=== PATIENT | male | born 1945 | race Caucasian/White ===

== ENCOUNTER → 2020-04-11 | Outpatient (CLI) | payer MEDICARE, SELFPAY | END | disposition home or self-care (01) | PROVIDERS: PCP Family Medicine; Referring Provider Dermatology; Visit Provider Dermatology | DX: L72.0 Epidermal cyst (principal); G89.3 Neoplasm related pain (acute) (chronic) | CPT/HCPCS: 87070; 87075; 87076; 87205 ==

== ENCOUNTER 2020-08-01 23:11 | Emergency (ER) | payer MEDICARE, SELFPAY ==
[2020-08-01 23:12] VITALS: BP 121/72; PULSE 70; RESP 15; TEMP 36.9; O2SAT 97; BMI 27.1
--- NOTE | 2020-08-01 23:29 | ED.VIS.GEN ---
History of Present Illness Chief Complaint: GI Bleed Informant: Patient Onset: Today Context: Sudden Onset Timing: Continuous Current Severity: Mild Maximum Severity: Moderate Narrative: The patient is a 74-year-old male that presents to the emergency department with rather sudden onset bright red blood per rectum. Patient states that a few days ago, he had some mild diarrhea. He states it seemed like it resolved. Yesterday he was moving his bowels and seem to be constipated. He states that the end of his bowel movement, he noticed some red blood on the toilet tissue. States today had to move his bowels again, and when he finished there was bright red blood leaking from his rectum. He states he is never had any like this before. He denies any weakness or lightheadedness. He is not on anticoagulants. He is otherwise been in his normal state of health. Prior similar symptoms: No Recent Illness/Hospitalization: No Past Medical History - Allergies and Home Meds Allergies/Adverse Reactions: Allergies No Known Allergies Allergy (Verified 08/01/20 23:12) Primary Care Physician: Israel Vu DO [Primary Care Provider] - Prior records reviewed: Yes Past Medical History: None Surgical History: no surgical history Smoking Status: Never smoker Review of Systems General: Denies: Chills, Fever, Sweats Eyes: Denies: Visual changes - bilaterally, Diplopia ENT: Denies: Rhinorrhea, Sore throat Cardiovascular: Denies: Chest pain, Palpitations Respiratory: Denies: Dyspnea, Cough, Dyspnea on exertion Gastrointestinal: Reports: Hematochezia. Denies: Abdominal pain, Nausea, Vomiting, Diarrhea, Melena Genitourinary: Denies: Dysuria, Hematuria, Frequency Musculoskeletal: Denies: Back pain, Extremity Pain Skin: Denies: Rash, Wounds Neurological: Denies: Headache, Weakness, Numbness Physical Exam Vital Signs/Narrative: Vital Signs Temp Pulse Resp BP Pulse Ox 08/01/20 23:12 98.4 F 70 15 121/72 H 97 Inital Vital Signs reviewed: Yes General: Well nourished, Well developed, No Acute Distress Head: Normocephalic, Atraumatic Eyes: Perrl, EOMI ENT: Moist mucous membranes, No rhinorrhea Neck: Supple, Nontender Cardiovascular: Regular rate, Regular rhythm, No murmurs Respiratory: No distress, CTA bilaterally, Chest nontender Abdomen: Soft, Nontender, Nondistended, Normal bowel sounds Rectal: - - Rectal exam demonstrates a hemorrhoid at the 9 o'clock position with stigmata of recent bleeding. With pressure, large clot was evacuated. There was some recurrent bleeding. It is nonpulsatile. Back: Nontender, Normal Inspection Extremities: Nontender, No edema Skin: Normal color, No rash Neurological: Alert, Oriented x3, Cranial nerves II-XII grossly intact, Normal Strength, Normal Sensation Psychological: Normal affect, Normal Mood Diagnostic/Tx/Re-eval - Medical Decision Making Rectal exam was done. Patient has hemorrhoid at the 9 o'clock position with stigmata of recent bleeding. With some compression, clot was expressed and there was mild recurrent bleeding. The area was packed with 4 x 4's and the patient was observed. Within 45 minutes, the area was reexplored. There was no further bleeding. I placed a piece of Surgifoam with 4 x 4's to achieve hemostasis. There is no thrombosis. He has no significant pain. His labs are unremarkable. At this point, I will continue him on stool softeners and have him follow-up with surgery for reevaluation. He is comfortable with this plan of care. Impression 1. External hemorrhoid with bleeding ED Disposition - Plan for ED Patient: Instructions: ED Hemorrhoids Prescriptions: Docusate Sodium [Colace] 100 mg PO DAILY #20 cap Prescription Printed Referrals: Espinoza Winn MD [STAFF PHYSICIAN] - As soon as possible
[2020-08-01 23:45] LABS: Absolute Lymphocyte Count 1.49 X10^3/uL (0.83-4.51); Absolute Neutrophil Count 2.5 X10^3/uL (2.0-7.7); Basophil# 0.05 X10^3/uL; Basophil% 1.1 % (0-1); Eosinophils% 4.3 % (0-5); Hematocrit 38.6 % (40-54); Hemoglobin 12.9 g/dL (13.0-16.5); Lymphocyte # 1.49 X10^3/ul (4.0); Mean Corp Hgb Conc 33.4 g/dL (32-36); Mean Corpuscular Hgb 31.5 pg (27.0-32.0); Mean Corpuscular Volume 94.4 fL (80-94); Mean Platelet Vol. 9.7 fl (6.2-12.0); Monocyte# 0.42 X10^3/uL; NRBC Flagged by Analyzer 0 % (0-5); Neutrophil # 2.46 X10^3/uL (2.7-7.7); Neutrophil % 52.7 % (47-70); Platelet Count 208 K/mm3 (150-450); RBC Distribution Width SD 44.9 fl (35.1-43.9); Red Blood Count 4.09 M/mm3 (4.6-6.2); White Blood Count 4.7 K/mm3 (4.4-11.0)
[2020-08-01 23:58] LABS: Anion Gap 3 (5-15); BUN 24 mg/dL (7-18); Calcium,Total 8.2 mg/dL (8.5-10.1); Chloride 111 mmol/L (98-107); Creatinine, Serum 1.26 mg/dL (0.70-1.30); EST Glomerular Filtration Rate 60 mL/min (>60); Est Glom Filt Rate - Afr Amer 72 mL/min (>60); Estimated Creatinine Clearance 57.31 ml/min; Glucose 130 mg/dL (74-106); Potassium 3.9 mmol/L (3.5-5.1); Sodium Level 142 mmol/L (136-145)
[2020-08-02 00:11] VITALS: RESP 15
== END 2020-08-02 00:22 | disposition home or self-care (01) ==
LOC: ED 23:54
PROVIDERS: Emergency Provider Emergency Medicine; PCP Family Medicine
DX: K64.4 Residual hemorrhoidal skin tags (principal)
CPT/HCPCS: 36415; 80048; 85025; 99282

== ENCOUNTER 2020-09-05 06:19 | Day surgery (SDC) | payer MEDICARE, SELFPAY ==
[2020-08-09 07:50] VITALS: BMI 27.1
[2020-09-05] VITALS (8 sets, daily range): BP systolic 105–132; BP diastolic 63–84; PULSE 45–53; RESP 14–16; TEMP 36.3–36.6; O2SAT 97–98; BMI 25.8
[2020-09-05] MEDS: Lactated Ringers 1,000 ML 100 ML IV (07:05)
--- NOTE | 2020-09-05 07:53 | OP.COLON_ITS ---
Patient Name: Nathan Cortes Procedure Date: 09/05/2020 7:19 AM Date of : 1945 Age: 74 Procedure: Colonoscopy Indications: Rectal bleeding Providers: Espinoza Winn MD Referring MD: Israel Vu Medicines: See the Anesthesia note for documentation of the administered medications Patient Profile: This is a 74 year old male. Refer to note in patient chart for documentation of history and physical. Last Colonoscopy: none. The patient's first colonoscopy is today. Complications: No immediate complications. Procedure: Pre-Anesthesia Assessment: - Prior to the procedure, a History and Physical was performed, and patient medications and allergies were reviewed. The patient's tolerance of previous anesthesia was also reviewed. The risks and benefits of the procedure and the sedation options and risks were discussed with the patient. All questions were answered, and informed consent was obtained. Prior Anticoagulants: The patient has taken no previous anticoagulant or antiplatelet agents. ASA Grade Assessment: II - A patient with mild systemic disease. After reviewing the risks and benefits, the patient was deemed in satisfactory condition to undergo the procedure. After I obtained informed consent, the scope was passed under direct vision. Throughout the procedure, the patient's blood pressure, pulse, and oxygen saturations were monitored continuously. The adult colonoscope was introduced through the anus and advanced to 3 cm into the ileum. The colonoscopy was performed without difficulty. The patient tolerated the procedure well. The quality of the bowel preparation was good. Scope In: 7:34:44 AM Scope Withdrawal Time 0 hours 6 minutes 54 seconds Scope Out: 7:46:28 AM Total Procedure Duration Time 0 hours 11 minutes 44 seconds Findings: The terminal ileum appeared normal. A 5 mm polyp was found in the hepatic flexure. The polyp was sessile. The polyp was removed with a jumbo cold forceps. Resection and retrieval were complete. Non-bleeding internal hemorrhoids were found during retroflexion. The hemorrhoids were mild and small. The exam was otherwise without abnormality. Impression: - The examined portion of the ileum was normal. - One 5 mm polyp at the hepatic flexure, removed with a jumbo cold forceps. Resected and retrieved. - Non-bleeding internal hemorrhoids. - The examination was otherwise normal. Recommendation: - Discharge patient to home. - Resume previous diet. - Continue present medications. - Await pathology results. - Repeat colonoscopy in 5-10 years for surveillance. - Return to primary care physician (date not yet determined). - Telephone my office for pathology results in 1 week. Procedure Code(s): --- Professional --- 89936, Colonoscopy, flexible; with biopsy, single or multiple Diagnosis Code(s): --- Professional --- K64.8, Other hemorrhoids D12.3, Benign neoplasm of transverse colon (hepatic flexure or splenic flexure) K62.5, Hemorrhage of anus and rectum CPT copyright 2017 [employer]. All rights reserved. The codes documented in this report are preliminary and upon cell preparer review may be revised to meet current compliance requirements. MD Espinoza Ricketts MD 09/05/2020 7:52:46 AM This report has been signed electronically. Number of Addenda: 0 Note Initiated On: 09/05/2020 7:19 AM
--- NOTE | 2020-09-05 07:53 | OP.CCLET_ITS ---
09/05/2020 Israel Vu [address] [place] [address] Re : Colonoscopy procedure for Nathan Cortes Dear Dr. Vu This procedure was performed on Saturday, September 05, 2020. My impressions and recommendations are as follows: Impressions : - The examined portion of the ileum was normal. - One 5 mm polyp at the hepatic flexure, removed with a jumbo cold forceps. Resected and retrieved. - Non-bleeding internal hemorrhoids. - The examination was otherwise normal. Recommendations : - Discharge patient to home. - Resume previous diet. - Continue present medications. - Await pathology results. - Repeat colonoscopy in 5-10 years for surveillance. - Return to primary care physician (date not yet determined). - Telephone my office for pathology results in 1 week. My findings are described in the full procedure note, which is enclosed. If I can be of further assistance, please feel free to contact me at Doctor phone number(s): , Fax: [phone], Work: . Sincerely, MD Espinoza Ricketts MD 09/05/2020 7:52:46 AM This report has been signed electronically.
--- NOTE | 2020-09-05 10:00 | HP_ITS ---
Intake Vital Signs 08/09/20 Height 6 ft 08/09/20 Weight: 198 lb 4 oz 08/09/20 BMI 26.9 08/09/20 BP 136/89 H 08/09/20 Blood Pressure Location Rt brachial 08/09/20 Position Sitting 08/09/20 Respiration 20 H 08/09/20 Pulse 60 08/09/20 Pulse Source NIBP 08/09/20 Temp 97.5 F L 08/09/20 Temp Source Temporal 08/09/20 Pulse Oximetry (%) 97 Intake Visit Reasons: ER [facility] F/U 07/12 HEMORRHOIDS Chief Complaint: blood per rectum, fam hx colon cancer Napper Grinder Required: No Is patient in pain?: No Allergies No Known Allergies Allergy (Verified 08/09/20 07:49) Medications Cholecalciferol (VIT D3) [Vitamin D] 2,000 unit PO DAILY 08/01/20 [History Confirmed 08/09/20] Rutin/Hesp/Bioflav/C/[id number] [Bioflex Tablet] 1 ea PO DAILY 08/01/20 [History Confirmed 08/09/20] Docusate Sodium [Colace] 100 mg PO DAILY #20 cap 08/02/20 [Rx Confirmed 08/09/20] [facility] Medical History Hemorrhoid (Acute) Osteoarthritis (Acute) Surgical History History of hernia repair (Acute) Family History Mother Colon cancer Social History (Updated 08/09/20 @ 08:[address] Espinoza Winn MD) Smoking Status: Never smoker HPI HPI Surgical H&P: Yes HPI: YOLANDA DE JESUS, is a 74 M who presents to the office today for Evaluation of rectal bleeding. Patient was seen and [facility]'s emergency department on 08/01/2020. He had a rather sudden onset of bright red rectal bleeding. Patient stated that prior to his visit to the emergency department he had some mild diarrhea which seemed to resolve. Patient states that all the rectal bleeding has been painless. Patient states that he is never had a colonoscopy he has had 3 Cologuard's in the past that have all been negative and he has a mother with colon cancer. ROS General General: No weight change, appetite, fatigue, colon cancer, breast cancer or weakness HEENT HEENT: No difficulty swallowing, eye injury, eye surgery, swollen glands or hoarseness Endo Endocrine: No thyroid disease, diabetes mellitus, thyroid cancer, Hair loss, heat intolerance or cold intolerance Musc Musculoskeletal: Yes arthritis; no back problems, rheumatoid arthritis, gout or joint pain Cardio Cardiovascular: No murmur, pacemaker, heart disease, atrial fibrillation, high blood pressure, heart attack, heart stent, palpitations, shortness of breat with exertion or chest pain Psych Psychiatric: No depression, anxiety or hearing voices Resp Respiratory: No shortness of breath, No sleep apnea, No cough, No COPD, No asthma, No emphysema, No wheezing Gastro Gastrointestinal: No abdominal pain, No nausea or vomiting, No diarrhea, No constipation, No blood in stool, No acid reflux, Yes hemorrhoids, No ulcers, No gallbladder problem, No black,tarry stools Vito Hematologic: No blood thinners, No blood disorders, No bleeding, No anemia, No blood clots Neuro Neurologic: No weakness Exam Const General: no acute distress, well developed, well hydrated Orientation: oriented to person, oriented to place, oriented to time [facility] Head: normocephalic, atraumatic Ears: external ears normal Mouth: moist mucous membranes Eyes Sclera: sclerae normal Pupils: normal by confrontation Neck Neck: no lymphadenopathy noted Neck mass: No Thyroid: thyroid normal, symmetrical Chest Chest palpation & inspection: normal inspection of the chest Resp Effort & Inspection: normal respiratory effort Auscultation: clear to auscultation bilaterally Percussion: percussion normal Cardio Rate: regular rate Rhythm: regular rhythm Heart Sounds: no murmurs GI Palpation: soft, no hepatosplenomegaly, no masses, nontender Rectal Exam: other Other: Rectal exam deferred. Perianal exam shows normal hemorrhoidal bundles in the left lateral and then 2 on the right side. I believe the bleeding actually was coming from the left lateral side. There is no excoriation there is no signs of thrombosed hemorrhoids. Extrem General: normal to inspection, no clubbing, cyanosis or edema Assessment & Plan Problems 1. Rectal hemorrhage K62.5 Plan I have discussed the above with the patient. I have offered the patient colonoscopy for evaluation. I have explained the risks/benefits of the procedure and described the procedure. I have discussed the risks with the patient, including but not limited to: infection, bleeding, perforation of the GI tract requiring emergency surgery, inability to complete the procedure, injury to any internal organs, complications of anesthesia, etc. - the patient understands and agrees to proceed. I have answered all the patient's questions to the patient's satisfaction and the patient has no further questions. The patient has been given instructions for the colon cleansing preparation. Coding Level of Care Code Off vis,new,level 3 Diagnoses Rectal hemorrhage K62.5 COVID (Procedure Consent) Procedure Criteria Procedure Criteria: Yes Elective The surgeon/proceduralist and patient have discussed in detail the risk of exposure to and/or potential harm posed by the COVID-19 virus with having a surgery/procedure at this time versus the risk of? delaying the surgery/procedure. It is not possible to know either the risk of delaying the surgery or procedure or chance of getting an infection with perfect accuracy, but a joint decision was made between the patient and the surgeon/proceduralist ?to proceed at this time with the scheduled surgery/procedure as indicated on the consent form. I have re-examined the patient. There are no clinical changes since date of exam.
--- NOTE | 2020-09-05 11:00 | COLBX_PTH ---
PATIENT: YOLANDA DE JESUS LOC: EN U#:[id number] AGE/SX: 74/M ROOM: RE09/05/[address]: Dr. Espinoza Winn MD : 1945 BED: DIS: 09/05/2020 SPEC #: [id number] RECD: 09/05/20 11:36 STATUS: ALISA ARTURO #: [id number] MACY: 09/05/20 11:[address]: Espinoza Winn DEPT: SURGICAL PATHOLOGY RECD BY: Samara Davila ENTERED: 09/05/20 13:22 SP TYPE: COLON BX OTHR DR: Dr. Israel Vu DO Tissues: COLON BIOPSY Procedures: Surgery Specimen Level IV HEADER OPERATION: Colonoscopy (MAC) PRE-OP DIAGNOSIS: Rectal hemorrhage TISSUE SUBMITTED: Hepatic flexure polyp biopsy MICROSCOPIC DIAGNOSIS Hepatic flexure polyp, biopsy: Tubular adenoma. SJ:yanet 09/06/20 MICROSCOPIC DESCRIPTION Slides are reviewed. GROSS DESCRIPTION Received in fixative is one container labeled with the patient's name and designated hepatic flexure polyp. The specimen consists of one irregular fragment of light hernandez soft tissue that measures 0.4 x 0.3 x 0.1 cm. The specimen is totally submitted in one cassette. / SJ:yanet 09/05/20 TC:1 CPT: 70441
== END 2020-09-05 08:51 | disposition home or self-care (01) ==
LOC: EN 06:21 → AC 06:21
PROVIDERS: Anesthesiology; PCP Family Medicine; Referring Provider Family Medicine; Visit Provider Surgery
PROC: 0DJD8ZZ Inspection of Lower Intestinal Tract, Via Natural or Artificial Opening Endoscopic (ICD-10-PCS; CPT 45378; principal; 2020-09-05 07:25)
DX: K62.5 Hemorrhage of anus and rectum (principal); Z20.828 Contact with and (suspected) exposure to other viral communicable diseases; K64.8 Other hemorrhoids; D12.3 Benign neoplasm of transverse colon; Z80.0 Family history of malignant neoplasm of digestive organs
CPT/HCPCS: 45380; 87635; 88305; C9803; J7120; J1610; U0003

== ENCOUNTER → 2022-11-21 | Outpatient (CLI) | payer MEDICARE, SELFPAY ==
--- NOTE | 2022-11-21 08:49 | VDLE_ITS ---
Reason For Study: Edema RIGHT LEFT GSV is normal. CFV is compressible, spontaneous, phasic, CFV, FV, PopV, T/P Trunk and GastrocV are competent, and demonstrates normal noncompressible with intraluminal hypoechoic augmentation. echoes Minimal blood flow noted in the CFV. PTV is compressible. RT PerV is compressible. Procedure This is a venous duplex using B-mode, color flow and spectral Doppler. Exam performed in department. A preliminary report was called and/or faxed to [facility] and RN. Patient released home, office to call patient. VL/Venous Duplex US, Unilateral Interpretation Summary Acute deep venous thrombosis right common femoral, femoral, popliteal, tibioper villalta trunk, and gastrocnemius veins. Visible thrombus is easily visualized in the right common femoral and femoral veins particularly. Patent and compressible right great saphenous vein Normal flow patterns left common femoral vein Ordering Physician: Oksana Hayward Referring Physician: Israel Vu Performed By: Samantha Branham RVT
== END | disposition home or self-care (01) ==
LOC: CVS 08:47
PROVIDERS: PCP Family Medicine; Referring Provider Family Medicine; Visit Provider Family Medicine
DX: I82.411 Acute embolism and thrombosis of right femoral vein (principal); I82.439 Acute embolism and thrombosis of unspecified popliteal vein; I82.441 Acute embolism and thrombosis of right tibial vein; I82.461 Acute embolism and thrombosis of right calf muscular vein; I87.8 Other specified disorders of veins
CPT/HCPCS: 93971

== ENCOUNTER → 2022-12-06 | Outpatient (CLI) | payer MEDICARE, SELFPAY ==
[2022-12-06 12:24] LABS: Absolute Lymphocyte Count 1.56 X10^3/uL (0.83-4.51); Absolute Neutrophil Count 3.6 X10^3/uL (2.0-7.7); Basophil# 0.04 X10^3/uL; Basophil% 0.7 % (0-1); Eosinophils% 3.4 % (0-5); Hematocrit 44.8 % (40-54); Lymphocyte # 1.56 X10^3/ul (0.83-4.51); Lymphocyte % 26.4 % (19-41); Mean Corp Hgb Conc 33.5 g/dL (32-36); Mean Corpuscular Hgb 31.8 pg (27.0-32.0); Mean Corpuscular Volume 94.9 fL (80-94); Mean Platelet Vol. 10.9 fl (6.2-12.0); Monocyte# 0.45 X10^3/uL; Monocyte% 7.6 % (0-10); NRBC Flagged by Analyzer 0 % (0-5); Neutrophil # 3.64 X10^3/uL (2.7-7.7); Neutrophil % 61.7 % (47-70); Platelet Count 261 K/mm3 (150-450); RBC Distribution Width CV 13.1 % (11.6-14.6); RBC Distribution Width SD 45.8 fl (35.1-43.9); Red Blood Count 4.72 M/mm3 (4.6-6.2); White Blood Count 5.9 K/mm3 (4.4-11.0)
[2022-12-06 13:23] LABS: AST(SGOT) 24 U/L (15-37); Alanine Aminotransfer ALT/SGPT 28 U/L (16-61); Albumin, Serum 3.9 g/dL (3.2-5.0); Alkaline Phosphatase 72 U/L (45-117); Anion Gap 6 (5-15); BUN 21 mg/dL (7-18); BUN/Creat Ratio 18.9 RATIO (10-20); Calcium,Total 8.9 mg/dL (8.5-10.1); Chloride 106 mmol/L (98-107); Creatinine, Serum 1.11 mg/dL (0.70-1.30); EST Glomerular Filtration Rate 68 mL/min (>60); Est Glom Filt Rate - Afr Amer 83 mL/min (>60); Globulin 3.8 g/dL (2.2-4.2); Glucose 95 mg/dL (74-106); LDH 208 U/L (87-241); PSA,Total - Annual Screen 2.93 ng/mL (0.00-4.00); Potassium 5.1 mmol/L (3.5-5.1); Protein, Total 7.7 g/dL (6.4-8.2); Sodium Level 142 mmol/L (136-145)
[2022-12-06 17:16] LABS: Xtra Tube EP Lab EXTRA TUBE
== END | disposition home or self-care (01) ==
LOC: BFHLAB 09:12
PROVIDERS: PCP Family Medicine; Visit Provider Family Medicine
DX: R60.9 Edema, unspecified (principal); Z51.81 Encounter for therapeutic drug level monitoring; Z12.5 Encounter for screening for malignant neoplasm of prostate
CPT/HCPCS: 36415; 80053; 83615; 84153; 85025; G0103

== ENCOUNTER → 2023-02-28 | Outpatient (CLI) | payer MEDICARE, SELFPAY ==
[2023-02-28 15:17] LABS: Absolute Neutrophil Count 2.6 X10^3/uL (2.0-7.7); Basophil# 0.06 X10^3/uL; Basophil% 1.3 % (0-1); Eosinophil# 0.17 X10^3/uL; Eosinophils% 3.7 % (0-5); Hematocrit 42.4 % (40-54); Hemoglobin 14.2 g/dL (13.0-16.5); Lymphocyte % 30.5 % (19-41); Mean Corp Hgb Conc 33.5 g/dL (32-36); Mean Corpuscular Hgb 31.8 pg (27.0-32.0); Mean Corpuscular Volume 94.9 fL (80-94); Mean Platelet Vol. 10.9 fl (6.2-12.0); Monocyte# 0.37 X10^3/uL; Monocyte% 8.1 % (0-10); NRBC Flagged by Analyzer 0 % (0-5); Neutrophil # 2.59 X10^3/uL (2.7-7.7); Neutrophil % 56.4 % (47-70); Platelet Count 223 K/mm3 (150-450); RBC Distribution Width CV 13.4 % (11.6-14.6); RBC Distribution Width SD 46.7 fl (35.1-43.9); Red Blood Count 4.47 M/mm3 (4.6-6.2); White Blood Count 4.6 K/mm3 (4.4-11.0)
== END | disposition home or self-care (01) ==
LOC: BFHLAB 13:10
PROVIDERS: PCP Family Medicine; Referring Provider Family Medicine; Visit Provider Family Medicine
DX: Z51.81 Encounter for therapeutic drug level monitoring (principal)
CPT/HCPCS: 36415; 85025

== ENCOUNTER → 2023-03-07 | Outpatient (CLI) | payer MEDICARE, SELFPAY ==
--- NOTE | 2023-03-07 08:31 | VDLE_ITS ---
Reason For Study: HX DVT RIGHT LEFT GSV is normal. CFV is compressible, spontaneous, phasic, CFV is compressible, spontaneous, phasic, competent, and demonstrates normal competent and demonstrates normal augmentation. augmentation. Acute deep vein thrombosis is noted in the FV. It is dilated and NONCOMPRESSIBLE. Acute deep vein thrombosis is noted in the POP V. It is dilated and NONCOMPRESSIBLE. Acute deep vein thrombosis is noted in the T/P Trunk. It is dilated and NONCOMPRESSIBLE. PTV is compressible. RT PerV is compressible. Procedure This is a venous duplex using B-mode, color flow and spectral Doppler. Exam performed in department. The exam was diagnostic. A preliminary report was called and/or faxed to Dr. Vu's office. Disease regression noted from previous study. VL/Venous Duplex US, Unilateral Interpretation Summary Acute deep vein thrombosis is noted in the right femoral vein, popliteal vein, tibioperoneal trunk vein. . Ordering Physician: Israel Vu Referring Physician: Israel Vu Performed By: Betito Beal RVT
== END | disposition home or self-care (01) ==
LOC: CVS 08:30
PROVIDERS: PCP Family Medicine; Referring Provider Family Medicine; Visit Provider Family Medicine
DX: I82.411 Acute embolism and thrombosis of right femoral vein (principal)
CPT/HCPCS: 93971

== ENCOUNTER → 2023-05-23 | Outpatient (CLI) | payer MEDICARE, SELFPAY ==
--- NOTE | 2023-05-23 07:48 | VDLE_ITS ---
Reason For Study: F/U DVT RIGHT LEFT GSV is normal. CFV is compressible, spontaneous, phasic, CFV is compressible, spontaneous, phasic, competent, and demonstrates normal competent and demonstrates normal augmentation. augmentation. PTV is compressible. RT PerV is compressible. FV, POP V, and T/P Trunk are partially compressible with decreased flow. Improvement noted from previous study done 03/07/23. Procedure This is a venous duplex using B-mode, color flow and spectral Doppler. Exam performed in department. The exam was diagnostic. VL/Venous Duplex US, Unilateral Interpretation Summary Chronic deep vein thrombosis is noted in the right popliteal vein, tibioperonea l trunk vein. Improved from previous study. Ordering Physician: Israel Vu Performed By: Bertrand May RVT
== END | disposition home or self-care (01) ==
LOC: CVS 07:45
PROVIDERS: PCP Family Medicine; Referring Provider Family Medicine; Visit Provider Family Medicine
DX: I82.411 Acute embolism and thrombosis of right femoral vein (principal); I82.431 Acute embolism and thrombosis of right popliteal vein; I82.441 Acute embolism and thrombosis of right tibial vein
CPT/HCPCS: 93971

== ENCOUNTER → 2025-02-26 | Outpatient (CLI) | payer MEDICARE, SELFPAY ==
--- NOTE | 2025-02-26 15:47 | RAD_ITS ---
PROCEDURE: CHEST PA AND LATERAL 02/26/2025 REASON FOR EXAM: COUGH AND FATIGUE TECHNIQUE: Frontal and lateral views of the chest. COMPARISON: No relevant prior. FINDINGS: Lungs: Lungs clear of pneumonia and congestion. Old healed granulomatous changes. Pleura: No pleural effusions, thickening, or pneumothorax. Heart: Normal in size and configuration. Mediastinum/Caroline: Unremarkable. Great vessels: Aorta is tortuous and atherosclerotic. Bones/soft tissues: Mild multilevel spondylosis. RAD/Chest PA and Lateral IMPRESSION: No active cardiopulmonary disease. Reading Location: [facility]
== END | disposition home or self-care (01) ==
LOC: MTRAD 15:47
PROVIDERS: PCP Family Medicine; Referring Provider Physician Assistant Surgical; Visit Provider Physician Assistant Surgical
DX: J20.9 Acute bronchitis, unspecified (principal)
CPT/HCPCS: 71046

== ENCOUNTER → 2025-06-11 | Outpatient (CLI) | payer MEDICARE, SELFPAY ==
--- OUTSIDE RECORDS SUMMARY | 2025-06-11 09:44 | XMS RPT_ITS | CCD ---
Author Organization 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 Israel Vu Primary Care Provider [phone] Dr. Adam Godfrey Attending Provider [phone] Dr. Israel Vu Primary Care Provider Dr. Adam Godfrey Attending Provider Dr. Oksana Hayward Referring Provider Dr. Christiano Fitzgerald Attending Provider Dr. Israel Vu Primary Care Provider Dr. Israel Vu Referring Provider Humble El Attending Unavailable Israel Vu Primary Care Unavailable Israel Vu Referring Unavailable Humble El Referring Unavailable Israel Vu Primary Care Unavailable Humble El Attending Unavailable Medications Current Medications Medication Drug Class(es) Dates Sig (Normalized) Sig (Original) ibuprofen 200 mg oral tablet (5 sources) Nonsteroidal Anti-inflammatory Drug Start: 11-22-2021 take 1 tablet by mouth every six hours Ibuprofen (Advil) 200 mg tablet Active 200 MG PO EVERY 6 HOURS November 22, 2021 1:00am Completed/Discontinued Medications Medication Drug Class(es) Dates Sig (Normalized) Sig (Original) cholecalciferol 0.025 mg oral tablet (5 sources) Vitamin D Start: 0 End: 2 take 2000 [IU] by mouth every week Cholecalciferol (Vitamin D3) Discontinued 2000 UNIT PO EVERY WEEK August 01, 2020 12:00am November 22, 2021 12:56pm docusate sodium 100 mg oral capsule (5 sources) Start: 0 End: 2 take 100 mg by mouth once daily Docusate Sodium Discontinued 100 MG PO DAILY August 02, 2020 12:00am November 22, 2021 12:56pm methylPREDNISolone 4 mg oral tablet (10 sources) Corticosteroid Start: 2 End: 2 take 1 tablet by mouth once Methylprednisolone (Medrol (Corey)) 4 mg tablets,dose pack Discontinued 4 MG PO per package directions 24 03April 27, 2022 12:00am May 02, 2022 12:03am Problems Problem Classification Problem Date Documented Date Episodic/Chronic Acute bronchitis (1 source) Acute bronchitis, unspecified; Translations: [Acute bronchitis, unspecified] Onset: 03-03-2025 Episodic Other acquired deformities (5 sources) Lordosis deformity of spine; Translations: [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] 11-22-2021 Chronic Other non-traumatic joint disorders (5 sources) Pain in unspecified knee; Translations: [Knee pain] 11-22-2021 Episodic Other upper respiratory infections (1 source) Acute sinusitis, unspecified; Translations: [Acute sinusitis, unspecified] Onset: 02-26-2025 Episodic Residual codes; unclassified (5 sources) History of colonoscopy; Translations: [Other specified postprocedural states] 11-22-2021 Episodic Spondylosis; intervertebral disc disorders; other back problems (5 sources) Cervical radiculopathy; Translations: [Radiculopathy, cervical region] 11-22-2021 Episodic Results Test Name Value Interpretation Reference Range Facility Chest PA and Lateralon 02-26 Chest PA and Lateral [facility] Imaging Services [address] [place] [address] [id number] Chest PA and Lateral MR#: [id number] Acct: [id number] Name: YOLANDA DE JESUS Rep #: [id number] : 1945 M 79 From: Christiano García MD PCP: Dr. Israel Vu, DO Status: REG CLI Study: Chest PA and Lateral Date of Exam: 02/26/25 Exam# [id number] Ordering Dr: Humble Covington PA PA PROCEDURE: CHEST PA AND LATERAL 02/26/2025 REASON FOR EXAM: COUGH AND FATIGUE TECHNIQUE: Frontal and lateral views of the chest. COMPARISON: No relevant prior. FINDINGS: Lungs: Lungs clear of pneumonia and congestion. Old healed granulomatous changes. Pleura: No pleural effusions, thickening, or pneumothorax. Heart: Normal in size and configuration. Mediastinum/Caroline: Unremarkable. Great vessels: Aorta is tortuous and atherosclerotic. Bones/soft tissues: Mild multilevel spondylosis. RAD/Chest PA and Lateral IMPRESSION: No active cardiopulmonary disease. Reading Location: [facility] CC: ANIBAL Karimi; Dr. Israel Vu DO Vehicle Fare Collector: Signed Normal [facility] Urgent Care Visit Reporton 0 02-26-2025 Urgent Care Visit Report [facility] [address], [address] [place] [address] OFFICE VISIT Date of Service: 02/26/25 MR#: [id number] Acct: [id number] Name: YOLANDA DE JESUS Rep #: [id number] : 1945 Provider: ANIBAL Karimi Age/Sex: 79/M Location: [facility] Status: Signed Intake Vital Signs 11/22/21 11:55 02/26/25 16:14 Height 5 ft 11 in BP 128/86 H Respiration 16 Pulse 72 Pulse Source Palpation Temp 98.4 F Temp Source Oral Pulse Oximetry (%) 99 Oxygen Delivery Method room air Intake Visit Reasons: CHEST CONGESTION, HEADACHE, SINUS Allergies No Known Allergies Allergy (Verified 04/27/22 15:44) Have you fallen in the past year?: No [facility] History Cervical radiculopathy Hemorrhoid Knee pain 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 Patient states that he was traveling out of state last week and then had what seemed to be a upper respiratory infection that mostly cleared up until 2 days ago when the sinus pain and pressure as well as fatigue worsened. Patient denies fever, chills or sweats. No nausea, vomiting or diarrhea. No hemoptysis or difficulty breathing however does state it feels like he has mucus in his lungs that he cannot cough out. No other associated symptoms or alleviating/aggravat ing factors. ROS Const Constitutional: No other (6 system ROS completed with pertinent findings in the HPI otherwise normal.) Exam Const General: cooperative and healthy appearing HENMT Head: normal to inspection Ears: hearing grossly normal bilaterally, TM's normal bilaterally and EAC's normal Nose: nasal discharge purulent Face and sinus: sinus tenderness frontal and maxillary Mouth: oral mucosae normal Throat: abnormal tonsil bilaterally erythema and hypertrophy 1+ and postnasal drainage Resp Effort Inspection: normal respiratory effort Auscultation: Bilateral: Clear to Auscultation Cardio Palpation: normal PMI Rate: regular rate Rhythm: regular rhythm Neuro General: patient alert and CN's II-XI intact bilaterally Psych Appearance: grossly normal Mental Status: mental status grossly normal Coding Level of Care Code Off vis,est,level 4 Diagnoses Acute sinusitis J01.90 Assessment and Plan Assessment and Plan (1) Acute sinusitis: Status: Acute Orders: Orders Chest PA and Lateral Today J20.9 - Acute bronchitis, unspecified Medications: New amoxicillin-pot clavulanate 875-125 mg 1 TAB PO Q12H 10 days 20 tabs 0RF J01.90 - Acute sinusitis, unspecified methylprednisolone (Medrol (Corey)) 4 mg PO PER PKG DIR 6 days 21 tabs 0RF Plan 2 view chest x-ray read interpreted by myself finding no acute osseous/osseous cardiopulmonary disease. Awaiting radiology interpretation at time of patient discharge. Augmentin and Medrol Dosepak as prescribed today. Encouraged to get plenty of rest, drink lots of clear liquids, and use Tylenol or Ibuprofen (unless contraindicated) for fever and comfort. Patient also educated on other symptomatic management techniques. To be seen in 7-10 days if no improvement; sooner if worsening of symptoms. Patient advised of potential red flags and when appropriate to report to the ED. Patient verbalized understanding and agreement with all the above. Clinical Quality Measures Falls Risk Screening/Assistive Devices Have you fallen in the past year?: No 02/26/25 1617 Date Humble Barnes Signature: Date (if applicable) CC: Normal [facility] Absolute lymphocyte countOrd ered By: Dr. Vu on 02-28-2023 Lymphocytes Auto (Unsp spec) [#/Vol] 1.40 10*3/uL 0.83-4.51 [facility] Basophil percentageOrdered B y: Dr. Vu on 02-28-2023 Basophils/100 WBC (Bld) 1.3 % 0-1 [facility] Eosinophils/100 WBC (Bld) 3.7 % 0-5 [facility] Neutrophils (Bld) [#/Vol] 2.6 10*3/uL 2.0-7.7 [facility] Neutrophils/100 WBC (Bld) 56.4 % 47-70 [facility] WBC (Bld) [#/Vol] 4.6 10*3/uL 4.4-11.0 [facility] Blood erythrocytes count (nu mber/volume)Ordered By: Dr. Vu on 02-28-2023 RBC (Bld) [#/Vol] 4.47 10*6/uL 4.6-6.2 [facility] Blood hemoglobin measurement (mass/volume)Ordered By: Dr. Vu on 02-28-2023 Hemoglobin (Bld) [Mass/Vol] 14.2 g/dL 13.0-16.5 [facility] Blood lymphocytes/100 leukoc ytesOrdered By: Dr. Vu on 02-28-2023 Lymphocytes/100 WBC (Bld) 30.5 % 19-41 [facility] Blood monocytes/100 leukocyt esOrdered By: Dr. Vu on 02-28-2023 Monocytes/100 WBC (Bld) 8.1 % 0-10 [facility] Blood platelet mean volumeOr dered By: Dr. Vu on 02-28-2023 Platelet mean volume (Bld) [Entitic vol] 10.9 fL 6.2-12.0 [facility] Determination of erythrocyte mean corpuscular volume (MCV)Ordered By: Dr. Vu on 02-28-2023 MCV (RBC) [Entitic vol] 94.9 fL 80-94 [facility] Hematocrit Auto (Bld) [Volum e fraction]Ordered By: Dr. Vu on 02-28-2023 Hematocrit (Bld) [Volume fraction] 42.4 % 40-54 [facility] Laboratory - Hematology and Cell countsOrdered By: Dr. Vu on 02-28-2023 Erythrocyte distribution width (RBC) [Entitic vol] 46.7 fL 35.1-43.9 [facility] Erythrocyte distribution width (RBC) [Ratio] 13.4 % 11.6-14.6 [facility] Immature granulocytes/100 WBC (Bld) 0.000 % 0.0-0.9 [facility] Comment on above: IG% - Immature Granu locytes (promyelocytes, myelocytes and metamyelocytes) > 1% indicates that a LEFT SHIFT is Present. MCH (RBC) [Entitic mass] 31.8 pg 27.0-32.0 [facility] Nucleated RBC/100 WBC (Bld) [Ratio] 0 % 0-5 [facility] MCHC Auto (RBC) [Mass/Vol]Or dered By: Dr. Vu on 02-28-2023 MCHC (RBC) [Mass/Vol] 33.5 g/dL 32-36 [facility] Platelets bldOrdered By: Dr. Vu on 02-28-2023 Platelets (Bld) [#/Vol] 223 10*3/uL 150-450 [facility] Absolute lymphocyte countOrd ered By: Dr. Vu on 12-06-2022 Lymphocytes Auto (Unsp spec) [#/Vol] 1.56 10*3/uL 0.83-4.51 [facility] Basophil percentageOrdered B y: Dr. Vu on 12-06-2022 Basophils/100 WBC (Bld) 0.7 % 0-1 [facility] Bilirubin [Mass/Vol] 0.70 mg/dL 0.20-1.00 [facility] Comment on above: For patients on eltr ombopag therapy, use of Dimension [place] TBIL is not recommended. Chloride [Moles/Vol] 106 mmol/L 98-107 [facility] Eosinophils/100 WBC (Bld) 3.4 % 0-5 [facility] Glucose [Mass/Vol] 95 mg/dL 74-106 [facility] LDH [Catalytic activity/Vol] 208 U/L 87-241 [facility] Neutrophils (Bld) [#/Vol] 3.6 10*3/uL 2.0-7.7 [facility] Neutrophils/100 WBC (Bld) 61.7 % 47-70 [facility] Potassium [Moles/Vol] 5.1 mmol/L 3.5-5.1 [facility] Protein [Mass/Vol] 7.7 g/dL 6.4-8.2 [facility] Sodium [Moles/Vol] 142 mmol/L 136-145 [facility] WBC (Bld) [#/Vol] 5.9 10*3/uL 4.4-11.0 [facility] Blood erythrocytes count (nu mber/volume)Ordered By: Dr. Vu on 12-06-2022 RBC (Bld) [#/Vol] 4.72 10*6/uL 4.6-6.2 [facility] Blood hemoglobin measurement (mass/volume)Ordered By: Dr. Vu on 12-06-2022 Hemoglobin (Bld) [Mass/Vol] 15.0 g/dL 13.0-16.5 [facility] Blood lymphocytes/100 leukoc ytesOrdered By: Dr. Vu on 12-06-2022 Lymphocytes/100 WBC (Bld) 26.4 % 19-41 [facility] Blood monocytes/100 leukocyt esOrdered By: Dr. Vu on 12-06-2022 Monocytes/100 WBC (Bld) 7.6 % 0-10 [facility] Blood platelet mean volumeOr dered By: Dr. Vu on 12-06-2022 Platelet mean volume (Bld) [Entitic vol] 10.9 fL 6.2-12.0 [facility] Determination of erythrocyte mean corpuscular volume (MCV)Ordered By: Dr. Vu on 12-06-2022 MCV (RBC) [Entitic vol] 94.9 fL 80-94 [facility] Hematocrit Auto (Bld) [Volum e fraction]Ordered By: Dr. Vu on 12-06-2022 Hematocrit (Bld) [Volume fraction] 44.8 % 40-54 [facility] Laboratory - Chemistry and C hemistry - challengeOrdered By: Dr. Vu on 12-06-2022 ALP [Catalytic activity/Vol] 72 U/L 45-117 [facility] ALT [Catalytic activity/Vol] 28 U/L 16-61 [facility] CO2 [Moles/Vol] 30.0 mmol/L 21.0-32.0 [facility] Globulin (S) [Mass/Vol] 3.8 g/dL 2.2-4.2 [facility] Urea nitrogen/Creatinine [Mass ratio] 18.9 mg/mg 10-20 [facility] Laboratory - Hematology and Cell countsOrdered By: Dr. Vu on 12-06-2022 Erythrocyte distribution width (RBC) [Entitic vol] 45.8 fL 35.1-43.9 [facility] Erythrocyte distribution width (RBC) [Ratio] 13.1 % 11.6-14.6 [facility] Immature granulocytes/100 WBC (Bld) 0.200 % 0.0-0.9 [facility] Comment on above: IG% - Immature Granu locytes (promyelocytes, myelocytes and metamyelocytes) > 1% indicates that a LEFT SHIFT is Present. MCH (RBC) [Entitic mass] 31.8 pg 27.0-32.0 [facility] Nucleated RBC/100 WBC (Bld) [Ratio] 0 % 0-5 [facility] MCHC Auto (RBC) [Mass/Vol]Or dered By: Dr. Vu on 12-06-2022 MCHC (RBC) [Mass/Vol] 33.5 g/dL 32-36 [facility] No Panel InformationOrdered By: Dr. Vu on 12-06-2022 Estimated GFR (MDRD) Amer 83 mL/min >60 [facility] Comment on above: GFR Calc Estimated GFR (MDRD) Non-Af Amer 68 mL/min >60 [facility] Comment on above: Non- GFR Calc Prostate Specific Antigen Screen 2.93 ng/mL 0.00-4.00 [facility] Comment on above: This test was perfor med using the TPSA assay method for the[employer] chemistry system. Values obtained with differentassay methods cannot be used interchangably.When changing PSA assays in the course of monitoring apatient, additional sequential testing should be carriedout to confirm baseline values. Platelets bldOrdered By: Dr. Vu on 12-06-2022 Platelets (Bld) [#/Vol] 261 10*3/uL 150-450 [facility] Serum or plasma albumin kimberlyn urement (mass/volume)Ordered By: Dr. Vu on 12-06-2022 Albumin [Mass/Vol] 3.9 g/dL 3.2-5.0 [facility] Serum or plasma albumin/glob ulin mass ratioOrdered By: Dr. Vu on 12-06-2022 Albumin/Globulin [Mass ratio] 1.0 {ratio} 0.9-2.4 [facility] Serum or plasma calcium kimberlyn urement (mass/volume)Ordered By: Dr. Vu on 12-06-2022 Calcium [Mass/Vol] 8.9 mg/dL 8.5-10.1 [facility] Serum or plasma creatinine m easurement (mass/volume)Ordered By: Dr. Vu on 12-06-2022 Creatinine [Mass/Vol] 1.11 mg/dL 0.70-1.30 [facility] Comment on above: The validity of the calculated GFR & GFRAA in patients over 70 years has not been determined. Clinical correlation is essential. Serum or plasma urea nitroge n measurement (mass/volume)Ordered By: Dr. Vu on 12-06-2022 Urea nitrogen [Mass/Vol] 21 mg/dL 7-18 [facility] Thin prep Papanicolaou smear with manual screeningOrdered By: Dr. Vu on 12-06-2022 Thin prep Papanicolaou smear with manual screening 24 U/L 15-37 [facility] Thin prep Papanicolaou smear with manual screening 6 5-15 [facility] Encounters Encounter Date Encounter Type Care Provider Facility Start: 02-26-2025 End: 02-26-2025 ambulatory Humble BARNETT [place] Start: 02-26-2025 End: 02-26-2025 ambulatory Humble BARNETT Facility:[facility] Start: 05-23-2023 Non-patient / Non-visit Dr. Luis Vu Work Phone: [facility] Start: 05-23-2023 End: 05-23-[address] Israel Vu Work Phone: [facility] Work Phone: Start: 05-23-2023 End: 05-23-[address] [facility] Start: 03-07-2023 Non-patient / Non-visit Dr. Luis Vu Work Phone: [facility] Start: 03-07-2023 End: 03-07-[address] Israel Vu Work Phone: [facility] Work Phone: Start: 03-07-2023 End: 03-07-[address] [facility] Start: 02-28-2023 End: 02-28-[address] Israel Vu Work Phone: [facility] Work Phone: Start: 02-28-2023 End: 02-28-[address] [facility] Start: 12-06-2022 End: 12-06-[address] Israel Vu Work Phone: [facility] Work Phone: Start: 12-06-2022 End: 12-06-[address] Israel Vu Work Phone: [facility]Justus Lgoan [facility] Start: 11-21-2022 Non-patient / Non-visit Dr. Luis uV Work Phone: [facility] Start: 11-21-2022 End: 11-21-[address] Isreal Vu Work Phone: [facility] Work Phone: Start: 11-21-2022 End: 11-21-[address] Israel Vu Work Phone: [facility] Payers Date Payer Category Payer Private Health Insurance [facility] [id number] 2025 Self-pay [id number] Unknown ANTHEM [id number] Unknown [id number] Unknown [id number] Social History Date Type Detail Facility Start: 04-27-2022 End: 04-27-2022 Tobacco smoking status NHIS Unknown if ever smoked [facility] Start: 1945 Sex Assigned At Male [facility] Evaluation note Note Date & Type Note Facility Evaluation note No assessment information availa ble [facility] Work Phone: Chief Complaint and Reason for Visit Chief Complaint EDEMA RIGHT LEG Chief Complaint EDEMA RIGHT LEG RIGHT LEG DVT Chief Complaint RIGHT LEG DVT F/U DVT RT LEG Advance Directives No Advanced Directives Records Found Advance Directive Response Recorded Date/ Time Living Will Yes August 26 9:31am Power of [employer] Data Warehouse Developer Yes August 26, 2020 9:31am Advance Directive Response Recorded Date/ Time Living Will Yes August 26 10:31am Power of [employer] Data Warehouse Developer Yes August 26, 2020 10:31am Summary Purpose Family History No Family History Records Found Additional Source Comments Care Teams (unrecognized sec tion and content) Team Status: Active Member Role Status Dates Dr. Israel Vu DO Family Provider Active Dr. Israel Vu DO Primary Care Provider Active Team Status: Active Member Role Status Dates Dr. Israel Vu DO Primary Care Provider Active Dr. Adam Godfrey MD Attending Provider Active Team Status: Inactive Member Role Status Dates Dr. Israel Vu DO Primary Care Provider Active Dr. Oksana Hayward DO Attending Provider, Referring Prov ider Active Team Status: Inactive Member Role Status Dates Dr. Israel Vu DO Primary Care Provider, Attendin g Provider Active Team Status: Active Member Role Status Dates Dr. Israel Vu DO Primary Care Provider Active Dr. Adam Godfrey MD Attending Provider Active Dr. Oksana Hayward DO Referring Provider Active Team Status: Inactive Member Role Status Dates Dr. Israel Vu DO Primary Care Prov ider, Attending Provider, Referring Provider Active Team Status: Active Member Role Status Dates Dr. Israel Vu DO Primary Care Provider Active Dr. Chritsiano Fitzgerald MD Attending Provider Active Team Status: Active Member Role Status Dates Dr. Israel Vu DO Primary Care Provider, Referrin g Provider Active Dr. Christiano Fitzgerald MD Attending Provider Active Goals (unrecognized section and content) Goals may be documented in a n alternate sectionGoals may be documented in an alternate sectionGoals may be documented in an alternate sectionGoals may be documented in an alternate sectionGoals may be documented in an alternate section (unrecognized sect ion and content) No Status Records Found INFORMATION SOURCE (unrecogn ized section and content) DATE CREATED AUTHOR 03/08/2025 [facility] FOR RECORDS PERTAINING TO PATIENTS WHO ARE OR HAVE BEEN ENROLLED IN A CHEMICAL DEPENDENCY/SUBSTANCEABUSE PROGRAM, SOME INFORMATION MAY BE OMITTED. This clinical summary was aggregated from multiple sources. Caution should be exercised in using it in the provision of clinical care. This summary normalizes information from multiple sources, and as a consequence, information in this document may materially change the coding, format and clinical context of patient data. In addition, data may be omitted in some cases. CLINICAL DECISIONS SHOULD BE BASED ON THE PRIMARY CLINICAL RECORDS. CDP [facility]. provides no warranty or guarantee of the accuracy or completeness of information in this document.
[2025-06-11 10:35] LABS: Hematocrit 44.5 % (40-54); Hemoglobin 14.8 g/dL (13.0-16.5); Immature Granulocytes Count 0.020 X10^3/uL (0.0-0.0); Mean Corp Hgb Conc 33.3 g/dL (32-36); Mean Corpuscular Volume 95.3 fL (80-94); Mean Platelet Vol. 10.6 fl (6.2-12.0); NRBC Flagged by Analyzer 0 % (0-5); Platelet Count 220 K/mm3 (150-450); RBC Distribution Width CV 12.9 % (11.6-14.6); RBC Distribution Width SD 45.0 fl (35.1-43.9); Red Blood Count 4.67 M/mm3 (4.6-6.2); White Blood Count 5.3 K/mm3 (4.4-11.0)
[2025-06-11 11:49] LABS: PSA,Total - Annual Screen 3.57 ng/mL (0.02-4.00); Vitamin B12 374 pg/mL (180-914); Vitamin D,25 Hydroxy 34.3 ng/mL (30-100)
[2025-06-11 12:05] LABS: Cholesterol 207 mg/dL (<=200); Low Density Lipoprotein Calc. 145 mg/dL; Triglycerides 132 mg/dL; Very Low Density Lipoprotein 26 mg/dL (5-40); cholesterol:hdl ratio screen 5.75
[2025-06-11 12:49] LABS: AST(SGOT) 26 U/L (<=37); Alanine Aminotransfer ALT/SGPT 24 U/L (<=46); Albumin, Serum 4.3 g/dL (3.4-4.8); Alkaline Phosphatase 63 U/L (40-129); Anion Gap 8 (5-15); BUN 29 mg/dL (4-19); BUN/Creat Ratio 23.1 RATIO (10-20); Calcium,Total 9.5 mg/dL (7.6-11.0); Carbon Dioxide 27.4 mmol/L (21.0-32.0); Chloride 104 mmol/L (98-108); Globulin 2.9 g/dL (2.2-4.2); Glucose 97 mg/dL (70-99)
[2025-06-11 14:32] LABS: Potassium 6.1 mmol/L (3.3-5.1)
== END | disposition home or self-care (01) ==
PROVIDERS: PCP Family Medicine; Referring Provider Family Medicine; Visit Provider Family Medicine
DX: D75.89 Other specified diseases of blood and blood-forming organs (principal); R79.9 Abnormal finding of blood chemistry, unspecified; E78.5 Hyperlipidemia, unspecified; E55.9 Vitamin D deficiency, unspecified; Z12.5 Encounter for screening for malignant neoplasm of prostate
CPT/HCPCS: 36415; 80053; 80061; 82306; 82607; 84153; 85025; G0103

== ENCOUNTER → 2025-06-12 | Outpatient (CLI) | payer MEDICARE, SELFPAY ==
--- OUTSIDE RECORDS SUMMARY | 2025-06-12 09:10 | XMS RPT_ITS | CCD ---
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 Israel Vu Primary Care Provider [phone] Dr. Adam Godfrey Attending Provider [phone] Dr. Israel Vu Primary Care Provider Dr. Adam Godfrey Attending Provider [phone] Dr. Oksana Hayward Referring Provider Dr. Christiano Fitzgerald Attending Provider Dr. Israel Vu Primary Care Provider [phone] [address] Israel Vu Referring Provider Humble El [...] and Lateralon 02-26 Chest PA and Lateral [facility] Imaging Services [address] [place] [id number] Chest PA and Lateral MR#: [id number] Acct: [id number] Name: YOLANDA DE JESUS Rep #: [id number] : 1945 M 79 From: Christiano García MD PCP: Dr. Israel Vu, DO Status: REG CLI Study: Chest PA and Lateral Date of Exam: 02/26/25 Exam# [id number] Ordering Dr: Humble Covington PA PA PROCEDURE: [...] CC: ANIBAL Karimi; Dr. 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: Signed Normal [facility] Urgent Care Visit Reporton 0 02-26-2025 Urgent Care Visit Report [facility] [address], [address] [place] [address] OFFICE VISIT Date of Service: 02/26/25 MR#: [id number] Acct: [id number] Name: YOLANDA DE JESUS Rep #: [id number] : 1945 Provider: ANIBAL Karimi Age/Sex: 79/M Location: [facility] Status: Signed Intake Vital Signs 11/22/21 11:55 02/26/25 16:14 Height 5 ft 11 in BP 128/86 H Respiration 16 Pulse 72 Pulse Source Palpation Temp 98.4 F Temp Source Oral Pulse Oximetry (%) 99 Oxygen Delivery Method room air Intake Visit Reasons: CHEST CONGESTION, HEADACHE, SINUS Allergies No Known Allergies Allergy (Verified 04/27/22 15:44) Have you fallen in the past year?: No [facility] History Cervical radiculopathy Hemorrhoid [...] Date (if applicable) CC: Normal [facility] Absolute lymphocyte countOrd ered By: Dr. Vu on 02-28-2023 Lymphocytes Auto (Unsp spec) [#/Vol] 1.40 10*3/uL 0.83-4.51 [facility] Basophil percentageOrdered B y: Dr. Vu on 02-28-2023 Basophils/100 WBC (Bld) 1.3 % 0-1 [facility] Eosinophils/100 WBC (Bld) 3.7 % 0-5 [facility] Neutrophils (Bld) [#/Vol] 2.6 10*3/uL 2.0-7.7 [facility] Neutrophils/100 WBC (Bld) 56.4 % 47-70 [facility] WBC (Bld) [#/Vol] 4.6 10*3/uL 4.4-11.0 [facility] Blood erythrocytes count (nu mber/volume)Ordered By: Dr. Vu on 02-28-2023 RBC (Bld) [#/Vol] 4.47 10*6/uL 4.6-6.2 [facility] Blood hemoglobin measurement (mass/volume)Ordered By: Dr. Vu on 02-28-2023 Hemoglobin (Bld) [Mass/Vol] 14.2 g/dL 13.0-16.5 [facility] Blood lymphocytes/100 leukoc ytesOrdered By: Dr. Vu on 02-28-2023 Lymphocytes/100 WBC (Bld) 30.5 % 19-41 [facility] Blood monocytes/100 leukocyt esOrdered By: Dr[address] Vu on 02-28-2023 Monocytes/100 WBC (Bld) 8.1 % 0-10 [facility] Blood platelet mean volumeOr dered By: Dr. Vu on 02-28-2023 Platelet mean volume (Bld) [Entitic vol] 10.9 fL 6.2-12.0 [facility] Determination of erythrocyte mean corpuscular volume (MCV)Ordered By: Dr. Vu on 02-28-2023 MCV (RBC) [Entitic vol] 94.9 fL 80-94 [facility] Hematocrit Auto (Bld) [Volum e fraction]Ordered By: Dr. Vu on 02-28-2023 Hematocrit (Bld) [Volume fraction] 42.4 % 40-54 [facility] Laboratory - Hematology and Cell countsOrdered By: Dr. Vu on 02-28-2023 Erythrocyte distribution width (RBC) [Entitic vol] 46.7 fL 35.1-43.9 [facility] Erythrocyte distribution width (RBC) [Ratio] 13.4 % 11.6-14.6 [facility] Immature granulocytes/100 WBC (Bld) 0.000 % 0.0-0.9 [facility] Comment on above: IG% - Immature Granu locytes (promyelocytes, myelocytes and metamyelocytes) > 1% indicates that a LEFT SHIFT is Present. MCH (RBC) [Entitic mass] 31.8 pg 27.0-32.0 [facility] Nucleated RBC/100 WBC (Bld) [Ratio] 0 % 0-5 [facility] MCHC Auto (RBC) [Mass/Vol]Or dered By: Dr. Vu on 02-28-2023 MCHC (RBC) [Mass/Vol] 33.5 g/dL 32-36 [facility] Platelets bldOrdered By: Dr. Vu on 02-28-2023 Platelets (Bld) [#/Vol] 223 10*3/uL 150-450 [facility] Absolute lymphocyte countOrd ered By: Dr. Vu on 12-06-2022 Lymphocytes Auto (Unsp spec) [#/Vol] 1.56 10*3/uL 0.83-4.51 [facility] Basophil percentageOrdered B y: Dr. Vu on 12-06-2022 Basophils/100 WBC (Bld) 0.7 % 0-1 [facility] Bilirubin [Mass/Vol] 0.70 mg/dL 0.20-1.00 [facility] Comment on above: For patients on eltr ombopag therapy, use of Dimension [place] TBIL is not recommended. Chloride [Moles/Vol] 106 mmol/L 98-107 [facility] Eosinophils/100 WBC (Bld) 3.4 % 0-5 [facility] Glucose [Mass/Vol] 95 mg/dL 74-106 [facility] LDH [Catalytic activity/Vol] 208 U/L 87-241 [facility] Neutrophils (Bld) [#/Vol] 3.6 10*3/uL 2.0-7.7 [facility] Neutrophils/100 WBC (Bld) 61.7 % 47-70 [facility] Potassium [Moles/Vol] 5.1 mmol/L 3.5-5.1 [facility] Protein [Mass/Vol] 7.7 g/dL 6.4-8.2 [facility] Sodium [Moles/Vol] 142 mmol/L 136-145 [facility] WBC (Bld) [#/Vol] 5.9 10*3/uL 4.4-11.0 [facility] Blood erythrocytes count (nu mber/volume)Ordered By: Dr. Vu on 12-06-2022 RBC (Bld) [#/Vol] 4.72 10*6/uL 4.6-6.2 [facility] Blood hemoglobin measurement (mass/volume)Ordered By: Dr. Vu on 12-06-2022 Hemoglobin (Bld) [Mass/Vol] 15.0 g/dL 13.0-16.5 [facility] Blood lymphocytes/100 leukoc ytesOrdered By: Dr. Vu on 12-06-2022 Lymphocytes/100 WBC (Bld) 26.4 % 19-41 [facility] Blood monocytes/100 leukocyt esOrdered By: Dr. Vu on 12-06-2022 Monocytes/100 WBC (Bld) 7.6 % 0-10 [facility] Blood platelet mean volumeOr dered By: Dr. Vu on 12-06-2022 Platelet mean volume (Bld) [Entitic vol] 10.9 fL 6.2-12.0 [facility] Determination of erythrocyte mean corpuscular volume (MCV)Ordered By: Dr. Vu on 12-06-2022 MCV (RBC) [Entitic vol] 94.9 fL 80-94 [facility] Hematocrit Auto (Bld) [Volum e fraction]Ordered By: Dr. Vu on 12-06-2022 Hematocrit (Bld) [Volume fraction] 44.8 % 40-54 [facility] Laboratory - Chemistry and C hemistry - challengeOrdered By: Dr. Vu on 12-06-2022 ALP [Catalytic activity/Vol] 72 U/L 45-117 [facility] ALT [Catalytic activity/Vol] 28 U/L 16-61 [facility] CO2 [Moles/Vol] 30.0 mmol/L 21.0-32.0 [facility] Globulin (S) [Mass/Vol] 3.8 g/dL 2.2-4.2 [facility] Urea nitrogen/Creatinine [Mass ratio] 18.9 mg/mg 10-20 [facility] Laboratory - Hematology and Cell countsOrdered By: Dr. Vu on 12-06-2022 Erythrocyte distribution width (RBC) [Entitic vol] 45.8 fL 35.1-43.9 [facility] Erythrocyte distribution width (RBC) [Ratio] 13.1 % 11.6-14.6 [facility] Immature granulocytes/100 WBC (Bld) 0.200 % 0.0-0.9 [facility] Comment on above: IG% - Immature Granu locytes (promyelocytes, myelocytes and metamyelocytes) > 1% indicates that a LEFT SHIFT is Present. MCH (RBC) [Entitic mass] 31.8 pg 27.0-32.0 [facility] Nucleated RBC/100 WBC (Bld) [Ratio] 0 % 0-5 [facility] MCHC Auto (RBC) [Mass/Vol]Or dered By: Dr. Vu on 12-06-2022 MCHC (RBC) [Mass/Vol] 33.5 g/dL 32-36 [facility] No Panel InformationOrdered By: Dr. Vu on 12-06-2022 Estimated GFR (MDRD) Amer 83 mL/min >60 [facility] Comment on above: GFR Calc Estimated GFR (MDRD) Non-Af Amer 68 mL/min >60 [facility] Comment on above: Non- GFR Calc Prostate Specific Antigen Screen 2.93 ng/mL 0.00-4.00 [facility] Comment on above: This test was perfor med using the TPSA assay method for the[employer] chemistry system. Values obtained with differentassay methods cannot be used interchangably.When changing PSA assays in the course of monitoring apatient, additional sequential testing should be carriedout to confirm baseline values. Platelets bldOrdered By: Dr. Vu on 12-06-2022 Platelets (Bld) [#/Vol] 261 10*3/uL 150-450 [facility] Serum or plasma albumin kimberlyn urement (mass/volume)Ordered By: Dr. Vu on 12-06-2022 Albumin [Mass/Vol] 3.9 g/dL 3.2-5.0 [facility] Serum or plasma albumin/glob ulin mass ratioOrdered By: Dr. Vu on 12-06-2022 Albumin/Globulin [Mass ratio] 1.0 {ratio} 0.9-2.4 [facility] Serum or plasma calcium kimberlyn urement (mass/volume)Ordered By: Dr. Vu on 12-06-2022 Calcium [Mass/Vol] 8.9 mg/dL 8.5-10.1 [facility] Serum or plasma creatinine m easurement (mass/volume)Ordered By: Dr. Vu on 12-06-2022 Creatinine [Mass/Vol] 1.11 mg/dL 0.70-1.30 [facility] Comment on above: The validity of the calculated GFR & GFRAA in patients over 70 years has not been determined. Clinical correlation is essential. Serum or plasma urea nitroge n measurement (mass/volume)Ordered By: Dr. Vu on 12-06-2022 Urea nitrogen [Mass/Vol] 21 mg/dL 7-18 [facility] Thin prep Papanicolaou smear with manual screeningOrdered By: Dr. Vu on 12-06-2022 Thin prep Papanicolaou smear with manual screening 24 U/L 15-37 [facility] Thin prep Papanicolaou smear with manual screening 6 5-15 [facility] Encounters Encounter Date Encounter Type Care Provider Facility Start: 02-26-2025 End: 02-26-2025 ambulatory Humble BARNETT Facility:[facility] Start: 02-26-2025 End: 02-26-2025 ambulatory Humble BARNETT Facility:[facility] Start: 05-23-2023 Non-patient / Non-visit Dr. Luis Vu Work Phone: [facility] Start: 05-23-2023 End: 05-23-[address] Israel Vu Work Phone: [facility] Work Phone: Start: 05-23-2023 End: 05-23-[address] [facility] Start: 03-07-2023 Non-patient / Non-visit Dr. Luis Vu Work Phone: [facility] Start: 03-07-2023 End: 03-07-[address] Israel Vu Work Phone: [facility] Work Phone: Start: 03-07-2023 End: 03-07-[address] [facility] Start: 02-28-2023 End: 02-28-[address] Israel Vu Work Phone: [facility] Work Phone: Start: 02-28-2023 End: 02-28-[address] [facility] Start: 12-06-2022 End: 12-06-[address] Israel Vu Work Phone: [facility] Work Phone: Start: 12-06-2022 End: 12-06-[address] Israel Vu Work Phone: [facility] Start: 11-21-2022 Non-patient / Non-visit Dr. Luis Vu Work Phone: [facility] Start: 11-21-2022 End: 11-21-[address] Israel Vu Work Phone: [facility] Work Phone: Start: 11-21-2022 End: 11-21-[address] Israel Vu Work Phone: [facility] Payers Date Payer Category Payer Private Health Insurance [facility] [id number] 2025 Self-pay [id number] Unknown ANTHEM [id number] Unknown [id number] Social History Date Type Detail Facility Start: 04-27-2022 End: 04-27-2022 Tobacco smoking status NHIS Unknown if ever smoked [facility] Start: 1945 Sex Assigned At Male [facility] Evaluation note Note Date & Type Note Facility Evaluation note No assessment information availa ble [facility] Work Phone: Chief Complaint and Reason for Visit Chief Complaint EDEMA RIGHT LEG Chief Complaint EDEMA RIGHT LEG RIGHT LEG DVT Chief Complaint RIGHT LEG DVT F/U DVT RT LEG Advance Directives No Advanced Directives Records Found Advance Directive Response Recorded Date/ Time Living Will Yes August 26 9:31am Power of Hat Former Yes August 26, 2020 9:31am Advance Directive Response Recorded Date/ Time Living Will Yes August 26 10:31am Power of Hat Former Yes August 26, 2020 10:31am Summary Purpose [...] Vu DO Primary Care Provider Active Dr. Christiano Fitzgerald MD Attending Provider Active Team Status: [...] section and content) DATE CREATED AUTHOR 03/08/2025 [facility] FOR RECORDS PERTAINING TO PATIENTS WHO ARE [...] BE BASED ON THE PRIMARY CLINICAL RECORDS. [employer] [facility]. provides no warranty or guarantee of the accuracy or completeness of information in this document.
[2025-06-12 09:40] LABS: Anion Gap 9 (5-15); BUN 25 mg/dL (4-19); BUN/Creat Ratio 20.5 RATIO (10-20); Calcium,Total 9.1 mg/dL (7.6-11.0); Carbon Dioxide 26.5 mmol/L (21.0-32.0); Chloride 106 mmol/L (98-108); Glucose 99 mg/dL (70-99); Potassium 4.9 mmol/L (3.3-5.1)
== END | disposition home or self-care (01) ==
LOC: LAB 09:08
PROVIDERS: PCP Family Medicine; Referring Provider Family Medicine; Visit Provider Family Medicine
DX: E87.5 Hyperkalemia (principal)
CPT/HCPCS: 36415; 80048